=== PATIENT | male | born 1935 | race Caucasian/White ===

== ENCOUNTER 2017-10-31 16:59 | Inpatient (IN) | payer OTHER ==
[~2017-10-31] VITALS: Ht 188 cm; Wt 82.4 kg
[~2017-10-31 16:59] MED LIST: ALPRAZOLAM0.5 MG PO; ANTIVERT12.5 MG PO; CENTRUM SILVER1 EAC3 PO; CLARITIN10 M3 PO; DIGOXIN125 MCG PO; ELIQUIS2.5 MG PO; EXTRA STRENGTH500 M1 PO; FLAX OIL1000 MG PO; KENLAOG,ARISTOC60 ML TP; LEVAQUIN750 MG PO; LEVO-T100 MCG PO; LO-DOSE ASPIRIN81 M2 PO; LOPRESSOR50 MG PO; METOPROLOL SUCC25 MG PO; MIRALAX255 GM PO; OCUVITE SOFTGE1 EACH PO; POLYETHYLENE G255 GM PO; RANITIDINE HCL300 MG PO; SERTRALINE HCL25 MG PO; SIMVASTATIN20 MG PO; TRAZODONE HCL50 MG PO
[2017-10-31 18:30] LABS: HEMATOCRIT 41.4 % (38.0-50.0); MCH 29.5 PG (29.0-34.0); MCHC 33.1 G/DL (30.0-36.0); MCV 89.2 FL (86-99); PLATELET COUNT 521 K/uL (156-360); RBC DIS.WIDTH-CV 20.6 % (11.8-14.6); RED BLOOD COUNT 4.64 M/uL (4.00-5.50); WHITE BLOOD COUNT 14.4 K/uL (4.1-10.2)
[2017-10-31 18:34] LABS: BASOPHIL COUNT 0.4 K/uL (0-0.1); EOSINOPHIL (%) 8.9 % (0-5); EOSINOPHIL COUNT 1.3 K/uL (0-0.3); IMMATURE GRANULOCYTE (%) 0.9 % (0.0-0.7); IMMATURE GRANULOCYTE COUNT 0.1 K/uL; INSTRUMENT ABS NEUTROPHIL CT 7.6 K/uL; LYMPHOCYTE COUNT 1.8 K/uL (1.0-2.8); MONOCYTE (%) 22.3 % (3-12); MONOCYTE COUNT 3.2 K/uL (0-0.8); NEUTROPHIL (%) 53.1 % (45-76); NEUTROPHIL COUNT 7.6 K/uL (1.8-6.4)
[2017-10-31 18:36] LABS: INTER. NORMALIZED RATIO 1.5; PROTHROMBIN TIME 17.1 SEC (10.2-12.9)
[2017-10-31 18:38] LABS: PTT 39.8 SEC (25-37)
[2017-10-31 18:38] LABS: CHLORIDE 101 mEq/L (99-109); POTASSIUM 3.7 mEq/L (3.7-5.4); SODIUM 139 mEq/L (136-147)
[2017-10-31 18:40] LABS: GLUCOSE 119 mg/dL (70-99)
[2017-10-31 18:41] LABS: ANION GAP 13 MEQ/L (2-14)
[2017-10-31 18:42] LABS: TOTAL BILIRUBIN 1.8 mg/dL (0.0-1.0)
[2017-10-31 18:44] LABS: ALKALINE PHOSPHATASE 73 IU/L (3-129); GFR ESTIMATE (CALCULATED) > 59 mL/min/
[2017-10-31 18:45] LABS: UREA NITROGEN (BUN) 13 mg/dL (9-23)
[2017-10-31 18:52] LABS: DIGOXIN < 0.3 ng/mL (0.8-2.0)
[2017-10-31] MEDS ORDERED: ACETAMINOPHEN-1 EAC1 PO (22:31)
[2017-10-31] MEDS ORDERED: ELIQUIS5 MG PO (22:32)
[2017-10-31] MEDS ORDERED: CILOSTAZOL100 MG PO (22:33)
[2017-10-31] MEDS ORDERED: PANTOPRAZOLE SO40 MG PO (22:34)
[2017-10-31] MEDS ORDERED: SERTRALINE HCL50 MG PO (22:35)
[2017-10-31] MEDS ORDERED: SIMVASTATIN40 MG PO (22:36)
[2017-10-31] MEDS ORDERED: ASPIR-LOW81 MG PO (22:37)
[2017-10-31 22:40] VITALS: BP 141/82
[2017-10-31] MEDS ORDERED: DIGOXIN125 MCG PO (22:42)
[2017-10-31] MEDS ORDERED: METOPROLOL TART50 MG PO (22:45)
[2017-10-31] MEDS ORDERED: OCUVITE SOFTGE1 EACH PO (22:46)
[2017-10-31] MEDS ORDERED: CENTRUM SILVER1 EAC1 PO (22:48)
[2017-10-31] MEDS ORDERED: CLARITIN5 MG PO (22:49)
[2017-10-31] MEDS ORDERED: [UNRECOGNIZED DRUG - REMARK] (22:53)
[2017-11-01 04:10] VITALS: BP 129/64
[2017-11-01 05:55] LABS: HEMATOCRIT 34.2 % (38.0-50.0); MCH 29.2 PG (29.0-34.0); MCHC 32.7 G/DL (30.0-36.0); MCV 89.1 FL (86-99); PLATELET COUNT 403 K/uL (156-360); RBC DIS.WIDTH-CV 20.4 % (11.8-14.6); RBC DIS.WIDTH-SD 64.6 % (39-53); RED BLOOD COUNT 3.84 M/uL (4.00-5.50); WHITE BLOOD COUNT 10.4 K/uL (4.1-10.2)
[2017-11-01 06:05] LABS: ANION GAP 6 MEQ/L (2-14); CHLORIDE 111 MEQ/L (99-109); GFR ESTIMATE (CALCULATED) > 59 mL/min/; GLUCOSE 132 mg/dL (70-99); POTASSIUM 3.7 MEQ/L (3.7-5.4); SAMPLE HEMOLYSIS CHECK 0; SAMPLE ICTERIC CHECK 0; SAMPLE LIPEMIA CHECK 0; SODIUM 145 MEQ/L (136-147); UREA NITROGEN (BUN) 12 mg/dL (9-23)
[2017-11-01 08:15] VITALS: BP 126/72
[2017-11-01 10:34] LABS: METH RESISTANT S AUREUS PCR NEGATIVE (NEGATIVE)
[2017-11-01 10:52] LABS: PROBE CHECK PASS; SPECIMEN PROCESSING CONTROL PASS
[2017-11-01 12:40] VITALS: BP 128/75
[2017-11-01 16:45] VITALS: BP 128/75
[2017-11-01 17:36] LABS: ADD MIUA? YES; BILIRUBIN NEGATIVE; BLOOD SMALL; COLOR STRAW ((YELLOW)); GLUCOSE (STRIP) NEGATIVE; KETONES NEGATIVE; LEUKOCYTES NEGATIVE; NITRITE NEGATIVE; PROTEIN (STRIP) NEGATIVE; SPECIFIC GRAVITY 1.004 (1.000-1.030); UROBILINOGEN 0.2 MG/DL (0.2-1.0)
[2017-11-01 17:41] LABS: BACTERIA NONE SEEN /HPF; EPITHELIAL CELLS NONE SEEN /HPF; MUCUS TRACE /LPF; RED BLOOD CELLS 0-5 /HPF (0-5); WHITE BLOOD CELLS 0-5 /HPF (0-5)
[2017-11-01 19:11] LABS: TROP-I INTERPRETATION NEGATIVE; TROPONIN-I < 0.01 ng/mL (0.0-0.30)
[2017-11-01 19:20] VITALS: BP 119/66
[2017-11-01 23:38] VITALS: BP 108/66
[2017-11-02 01:06] LABS: TROP-I INTERPRETATION NEGATIVE; TROPONIN-I 0.01 ng/mL (0.0-0.30)
[2017-11-02 03:37] VITALS: BP 127/73
[2017-11-02 08:00] VITALS: BP 129/59
[2017-11-02 08:10] LABS: HEMATOCRIT 34.9 % (38.0-50.0); MCH 29.9 PG (29.0-34.0); MCHC 34.1 G/DL (30.0-36.0); MCV 87.7 FL (86-99); RBC DIS.WIDTH-CV 20.6 % (11.8-14.6); RBC DIS.WIDTH-SD 62.5 % (39-53); RED BLOOD COUNT 3.98 M/uL (4.00-5.50); WHITE BLOOD COUNT 10.8 K/uL (4.1-10.2)
[2017-11-02 08:31] LABS: TROP-I INTERPRETATION NEGATIVE; TROPONIN-I 0.02 ng/mL (0.0-0.30)
[2017-11-02 08:34] LABS: MEAN PLAT.VOLUME 12.2 uM^3 (9.0-12.4); PLAT.SUFFICIENCY INCREASED; PLATELET COUNT 393 K/uL (156-360)
[2017-11-02 08:44] LABS: ANION GAP 7 MEQ/L (2-14); CHLORIDE 103 MEQ/L (99-109); GFR ESTIMATE (CALCULATED) > 59 mL/min/; GLUCOSE 185 mg/dL (70-99); POTASSIUM 3.4 MEQ/L (3.7-5.4); SAMPLE HEMOLYSIS CHECK 0; SAMPLE ICTERIC CHECK 0; SAMPLE LIPEMIA CHECK 0; UREA NITROGEN (BUN) 12 mg/dL (9-23)
[2017-11-02 08:47] LABS: SODIUM 136 MEQ/L (136-147)
[2017-11-02 09:00] VITALS: BP 102/52
[2017-11-02 12:00] VITALS: BP 102/52
[2017-11-02 15:07] LABS: TROP-I INTERPRETATION NEGATIVE; TROPONIN-I 0.01 ng/mL (0.0-0.30)
[2017-11-02 17:05] VITALS: BP 103/55
[2017-11-02 19:25] VITALS: BP 131/65
[2017-11-02 20:22] LABS: TROP-I INTERPRETATION NEGATIVE; TROPONIN-I 0.01 ng/mL (0.0-0.30)
[2017-11-03] VITALS (10 sets, daily range): BP systolic 100–139; BP diastolic 53–67
[2017-11-03 02:51] LABS: TROP-I INTERPRETATION NEGATIVE; TROPONIN-I 0.01 ng/mL (0.0-0.30)
[2017-11-03 04:47] LABS: HEMATOCRIT 32.7 % (38.0-50.0); MCH 29.7 PG (29.0-34.0); MCHC 34.6 G/DL (30.0-36.0); MCV 86.1 FL (86-99); MEAN PLAT.VOLUME 12.5 uM^3 (9.0-12.4); PLATELET COUNT 377 K/uL (156-360); RBC DIS.WIDTH-CV 20.3 % (11.8-14.6); RBC DIS.WIDTH-SD 61.9 % (39-53); WHITE BLOOD COUNT 9.6 K/uL (4.1-10.2)
[2017-11-03 04:59] LABS: CHLORIDE 106 mEq/L (99-109); POTASSIUM 3.6 mEq/L (3.7-5.4); SODIUM 135 mEq/L (136-147)
[2017-11-03 05:01] LABS: GLUCOSE 141 mg/dL (70-99)
[2017-11-03 05:02] LABS: ANION GAP 7 MEQ/L (2-14)
[2017-11-03 05:05] LABS: GFR ESTIMATE (CALCULATED) > 59 mL/min/; UREA NITROGEN (BUN) 15 mg/dL (9-23)
[2017-11-03 07:43] LABS: MAGNESIUM 1.9 mg/dl (1.3-2.7)
[2017-11-04 05:16] VITALS: BP 112/61
[2017-11-04 05:35] LABS: HEMATOCRIT 33.3 % (38.0-50.0); MCH 28.9 PG (29.0-34.0); MCHC 33.3 G/DL (30.0-36.0); MCV 86.7 FL (86-99); MEAN PLAT.VOLUME 12.5 uM^3 (9.0-12.4); PLATELET COUNT 371 K/uL (156-360); RBC DIS.WIDTH-CV 19.9 % (11.8-14.6); RBC DIS.WIDTH-SD 61.5 % (39-53); RED BLOOD COUNT 3.84 M/uL (4.00-5.50); WHITE BLOOD COUNT 6.5 K/uL (4.1-10.2)
[2017-11-04 06:09] LABS: ANION GAP 11 MEQ/L (2-14); CHLORIDE 107 MEQ/L (99-109); GFR ESTIMATE (CALCULATED) > 59 mL/min/; GLUCOSE 119 mg/dL (70-99); POTASSIUM 4.3 MEQ/L (3.7-5.4); SAMPLE HEMOLYSIS CHECK 0; SAMPLE ICTERIC CHECK 0; SAMPLE LIPEMIA CHECK 0; SODIUM 140 MEQ/L (136-147); UREA NITROGEN (BUN) 14 mg/dL (9-23)
[2017-11-04 11:00] VITALS: BP 97/55
[2017-11-04 16:44] VITALS: BP 127/62
[2017-11-04 19:15] VITALS: BP 116/60
[2017-11-04 19:44] VITALS: BP 116/60
[2017-11-05] VITALS (7 sets, daily range): BP systolic 90–124; BP diastolic 51–66
[2017-11-05 05:28] LABS: HEMATOCRIT 31.9 % (38.0-50.0); MCH 28.4 PG (29.0-34.0); MCHC 33.2 G/DL (30.0-36.0); MCV 85.5 FL (86-99); MEAN PLAT.VOLUME 12.4 uM^3 (9.0-12.4); PLATELET COUNT 401 K/uL (156-360); RBC DIS.WIDTH-CV 20.2 % (11.8-14.6); RBC DIS.WIDTH-SD 61.2 % (39-53); RED BLOOD COUNT 3.73 M/uL (4.00-5.50); WHITE BLOOD COUNT 6.5 K/uL (4.1-10.2)
[2017-11-05 05:50] LABS: ALKALINE PHOSPHATASE 75 IU/L (3-129); ANION GAP 10 MEQ/L (2-14); CHLORIDE 109 MEQ/L (99-109); GFR ESTIMATE (CALCULATED) > 59 mL/min/; GLUCOSE 127 mg/dL (70-99); POTASSIUM 3.6 MEQ/L (3.7-5.4); SAMPLE HEMOLYSIS CHECK 0; SAMPLE ICTERIC CHECK 0; SAMPLE LIPEMIA CHECK 0; SODIUM 141 MEQ/L (136-147); TOTAL BILIRUBIN 1.1 MG/DL (0.0-1.0); UREA NITROGEN (BUN) 12 mg/dL (9-23)
[2017-11-05 06:13] LABS: BASOPHIL COUNT 0.3 K/uL (0-0.1); EOSINOPHIL (%) 26.8 % (0-5); EOSINOPHIL COUNT 1.7 K/uL (0-0.3); IMMATURE GRANULOCYTE (%) 0.8 % (0.0-0.7); IMMATURE GRANULOCYTE COUNT 0.1 K/uL; LYMPHOCYTE COUNT 0.9 K/uL (1.0-2.8); MONOCYTE (%) 8.5 % (3-12); MONOCYTE COUNT 0.6 K/uL (0-0.8); NEUTROPHIL (%) 46.4 % (45-76); PLATELET CLUMPS PRESENT - PLATELET COUNT APPEARS ADQ.
[2017-11-06 03:25] VITALS: BP 122/67
[2017-11-06 06:05] LABS: HEMATOCRIT 33.7 % (38.0-50.0); MCH 28.1 PG (29.0-34.0); MCHC 32.3 G/DL (30.0-36.0); MCV 86.9 FL (86-99); MEAN PLAT.VOLUME 12.5 uM^3 (9.0-12.4); PLATELET COUNT 418 K/uL (156-360); RBC DIS.WIDTH-CV 21.2 % (11.8-14.6); RBC DIS.WIDTH-SD 63.4 % (39-53); RED BLOOD COUNT 3.88 M/uL (4.00-5.50); WHITE BLOOD COUNT 6.9 K/uL (4.1-10.2)
[2017-11-06 06:36] LABS: ANION GAP 14 MEQ/L (2-14); CHLORIDE 112 MEQ/L (99-109); GFR ESTIMATE (CALCULATED) > 59 mL/min/; GLUCOSE 132 mg/dL (70-99); SAMPLE HEMOLYSIS CHECK 0; SAMPLE ICTERIC CHECK 0; SAMPLE LIPEMIA CHECK 0; SODIUM 145 MEQ/L (136-147); UREA NITROGEN (BUN) 12 mg/dL (9-23)
[2017-11-06 07:13] VITALS: BP 153/71
[2017-11-06 07:40] LABS: BASOPHIL COUNT 0.3 K/uL (0-0.1); EOSINOPHIL (%) 29.6 % (0-5); IMMATURE GRANULOCYTE (%) 0.9 % (0.0-0.7); IMMATURE GRANULOCYTE COUNT 0.1 K/uL; LYMPHOCYTE COUNT 1.1 K/uL (1.0-2.8); MONOCYTE (%) 5.5 % (3-12); MONOCYTE COUNT 0.4 K/uL (0-0.8); NEUTROPHIL (%) 43.5 % (45-76); PLATELET CLUMPS PRESENT - PLATELET COUNT APPEARS ADQ.
[2017-11-06 11:01] VITALS: BP 112/56
[2017-11-06] MEDS ORDERED: LINEZOLID600 MG PO (13:10)
[2017-11-06] MEDS ORDERED: CORDARONE200 MG PO (13:10)
[2017-11-06] MEDS ORDERED: LOPRESSOR100 M1 PO (13:11)
== END 2017-11-06 16:30 | disposition home health service (06) | DRG 872 ==
LOC: EME 16:59 → 4EAST 20:57 → ENRESERV 20:57 → EDOF 20:57 → ENRESERV 21:39 → 4EAST 22:19 → ENPENDDIS 11-06 → 4EAST 11-06 16:30
PROVIDERS: Hospitalist; Internal Medicine; Internal Medicine Cardiovascular Disease; Physician Assistant
DX: A41.9 Sepsis, unspecified organism (principal); L03.115 Cellulitis of right lower limb; I48.92 Unspecified atrial flutter; I75.023 Atheroembolism of bilateral lower extremities; C92.10 Chronic myeloid leukemia, BCR/ABL-positive, not having achieved remission; E11.52 Type 2 diabetes mellitus with diabetic peripheral angiopathy with gangrene; E87.2 Acidosis; R65.20 Severe sepsis without septic shock; I48.0 Paroxysmal atrial fibrillation; K21.9 Gastro-esophageal reflux disease without esophagitis; F39 Unspecified mood [affective] disorder; E11.42 Type 2 diabetes mellitus with diabetic polyneuropathy; I70.213 Atherosclerosis of native arteries of extremities with intermittent claudication, bilateral legs; D46.9 Myelodysplastic syndrome, unspecified; I70.223 Atherosclerosis of native arteries of extremities with rest pain, bilateral legs; G62.9 Polyneuropathy, unspecified; I10 Essential (primary) hypertension; I25.10 Atherosclerotic heart disease of native coronary artery without angina pectoris; I77.1 Stricture of artery; M19.90 Unspecified osteoarthritis, unspecified site; E89.0 Postprocedural hypothyroidism; E78.5 Hyperlipidemia, unspecified; Z88.2 Allergy status to sulfonamides; Z88.0 Allergy status to penicillin; Z90.79 Acquired absence of other genital organ(s); Z85.850 Personal history of malignant neoplasm of thyroid; Z79.02 Long term (current) use of antithrombotics/antiplatelets; Z79.82 Long term (current) use of aspirin; Z79.01 Long term (current) use of anticoagulants; Z85.46 Personal history of malignant neoplasm of prostate; Z80.8 Family history of malignant neoplasm of other organs or systems; Z80.3 Family history of malignant neoplasm of breast
CPT/HCPCS: 73630; 80048; 80053; 80162; 80202; 81003; 83605; 83735; 84100; 84484; 85025; 85027; 85610; 85730; 87040; 87070; 87075; 87086; 87106; 87205; 87641; 93005; 93926; 94799; 99281; 99285; J1160; J3370; J7030; J7040; J7050; J7120

== ENCOUNTER → 2017-11-19 | Outpatient (CLI) | payer OTHER ==
[~2017-11-19] MED LIST changes: +ACETAMINOPHEN-1 EAC1 PO; +ASPIR-LOW81 MG PO; +CENTRUM SILVER1 EAC1 PO; +CILOSTAZOL100 MG PO; +CLARITIN,ALAVAR10 MG PO; +CLARITIN5 MG PO; +CORDARONE200 MG PO; +ELIQUIS5 MG PO; +LINEZOLID600 MG PO; +LOPRESSOR100 M1 PO; +METOPROLOL TART50 MG PO; +OXAYDO5 MG PO; +PANTOPRAZOLE SO40 MG PO; +SERTRALINE HCL50 MG PO; +SIMVASTATIN40 MG PO; +[UNRECOGNIZED DRUG - REMARK]
== END | disposition home or self-care (01) ==
LOC: AMB 14:00
DX: I70.261 Atherosclerosis of native arteries of extremities with gangrene, right leg (principal); L03.115 Cellulitis of right lower limb; C91.10 Chronic lymphocytic leukemia of B-cell type not having achieved remission; Z88.0 Allergy status to penicillin; Z88.2 Allergy status to sulfonamides
CPT/HCPCS: 99212

== ENCOUNTER 2018-03-19 09:20 | Inpatient (IN) | payer OTHER ==
[~2018-03-19] VITALS: Ht 188 cm; Wt 80.6 kg
[~2018-03-19 09:20] MED LIST changes: +ATORVASTATIN CA20 MG PO; +CEPHALEXIN500 MG PO; -CLARITIN,ALAVAR10 MG PO; +HYDREA500 MG PO; +LOPRESSOR25 MG PO; +OXYCODONE HCL5 MG PO; +TYLENOL EXTRA500 MG PO
[2018-03-19 10:13] LABS: HEMATOCRIT 35.1 % (38.0-50.0); MCH 37.8 PG (29.0-34.0); PLATELET COUNT 95 K/uL (156-360); RBC DIS.WIDTH-CV 18.8 % (11.8-14.6); RBC DIS.WIDTH-SD 75.7 % (39-53); RED BLOOD COUNT 3.25 M/uL (4.00-5.50)
[2018-03-19 10:15] LABS: CHLORIDE 102 mEq/L (99-109); POTASSIUM 3.5 mEq/L (3.7-5.4); SODIUM 136 mEq/L (136-147)
[2018-03-19 10:20] LABS: CREATININE 1.8 mg/dL (0.6-1.3); GFR ESTIMATE (CALCULATED) 38 mL/min/ (58.99-99999); GLUCOSE 225 mg/dL (70-99)
[2018-03-19 10:22] LABS: HEMOGLOBIN 12.3 G/DL (12.5-16.6); WHITE BLOOD COUNT 121.5 K/uL (4.1-10.2)
[2018-03-19 10:25] LABS: TROP-I INTERPRETATION NEGATIVE; TROPONIN-I 0.02 ng/mL (0.0-0.30)
[2018-03-19 10:26] LABS: UREA NITROGEN (BUN) 15 mg/dL (9-23)
[2018-03-19] MEDS ORDERED: HYDREA500 MG PO (10:35)
[2018-03-19] MEDS ORDERED: DOXYCYCLINE MO100 MG PO (10:39)
[2018-03-19] MEDS ORDERED: TRAZODONE HCL50 MG PO (10:40)
[2018-03-19] MEDS ORDERED: STOOL SOFTENER100 MG PO (10:42)
[2018-03-19 13:12] LABS: APPEARANCE SL.HAZY ((CLEAR)); BILIRUBIN NEGATIVE; BLOOD SMALL; COLOR YELLOW ((YELLOW)); GLUCOSE (STRIP) NEGATIVE; KETONES NEGATIVE; LEUKOCYTES NEGATIVE; NITRITE NEGATIVE; PROTEIN (STRIP) 100; SPECIFIC GRAVITY 1.013 (1.000-1.030); UROBILINOGEN 0.2 MG/DL (0.2-1.0)
[2018-03-19 13:14] LABS: PLAT.SUFFICIENCY DECREASED
[2018-03-19 13:15] LABS: BACTERIA RARE /HPF; EPITHELIAL CELLS NONE SEEN /HPF; MUCUS TRACE /LPF; RED BLOOD CELLS 0-5 /HPF (0-5); UCUL ADDED? NO; WHITE BLOOD CELLS 0-5 /HPF (0-5)
[2018-03-19 16:50] VITALS: BP 138/68
[2018-03-19 17:00] VITALS: BP 138/68
[2018-03-19 17:21] LABS: ABS NEUTROPHIL COUNT 58.6; BAND NEUTROPHILS 8.6 % (0-8.0); EOSINOPHIL ABS CT 1.1; EOSINOPHILS 0.9 % (0-5.0); LYMPHOCYTES 2.6 % (15.0-45.0); SEG.NEUTROPHILS 39.6 % (46.0-76.0)
[2018-03-19 17:45] LABS: MONOCYTES 48.3 % (0-9.0)
[2018-03-19 18:31] LABS: TROP-I INTERPRETATION NEGATIVE; TROPONIN-I 0.01 ng/mL (0.0-0.30)
[2018-03-19 20:00] VITALS: BP 109/52
[2018-03-19 23:55] VITALS: BP 90/54
[2018-03-20 02:12] LABS: TROP-I INTERPRETATION NEGATIVE; TROPONIN-I 0.01 ng/mL (0.0-0.30)
[2018-03-20 04:00] VITALS: BP 109/60
[2018-03-20 05:57] LABS: PLATELET COUNT 92 K/uL (156-360)
[2018-03-20 06:10] LABS: HEMATOCRIT 34.7 % (38.0-50.0); HEMOGLOBIN 11.5 G/DL (12.5-16.6); MCH 36.2 PG (29.0-34.0); MCHC 33.1 G/DL (30.0-36.0); MCV 109.1 FL (86-99); RBC DIS.WIDTH-CV 18.7 % (11.8-14.6); RBC DIS.WIDTH-SD 76.4 % (39-53); RED BLOOD COUNT 3.18 M/uL (4.00-5.50)
[2018-03-20 06:17] LABS: WHITE BLOOD COUNT 83.2 K/uL (4.1-10.2)
[2018-03-20 06:26] LABS: ALBUMIN 3.4 G/DL (3.2-4.8); ALKALINE PHOSPHATASE 41 IU/L (3-129); ALT (GPT) 10 IU/L (3-49); AST (GOT) 10 IU/L (2-34); CHLORIDE 109 MEQ/L (99-109); CREATININE 1.8 MG/DL (0.6-1.3); GFR ESTIMATE (CALCULATED) 38 mL/min/ (58.99-99999); HDL CHOLESTEROL 15 MG/DL (Desirable>=40); LDL CHOLESTEROL 20 mg/dL (Desirable<100); NON-HDL CHOLESTEROL 45 mg/dL (Desirable<160); POTASSIUM 3.4 MEQ/L (3.7-5.4); SODIUM 142 MEQ/L (136-147); TOTAL CHOLESTEROL 60 mg/dL (Desirable<200); TRIGLYCERIDES 124 MG/DL (Normal: <150)
[2018-03-20 06:34] LABS: GLUCOSE 119 mg/dL (70-99); TOTAL BILIRUBIN 1.4 MG/DL (0.0-1.0); TOTAL PROTEIN 5.5 G/DL (6.4-8.3); UREA NITROGEN (BUN) 25 mg/dL (9-23)
[2018-03-20 12:26] VITALS: BP 109/59
[2018-03-20 16:00] VITALS: BP 106/54
[2018-03-20 20:00] VITALS: BP 99/51
[2018-03-20 23:55] VITALS: BP 96/55
[2018-03-21 04:00] VITALS: BP 103/58
[2018-03-21 07:30] VITALS: BP 103/57
[2018-03-21 08:34] LABS: POTASSIUM 3.8 mEq/L (3.7-5.4); SODIUM 144 mEq/L (136-147)
[2018-03-21 08:34] LABS: PLATELET COUNT 74 K/uL (156-360)
[2018-03-21 08:36] LABS: CHLORIDE 113 mEq/L (99-109); GLUCOSE 87 mg/dL (70-99)
[2018-03-21 08:39] LABS: HEMATOCRIT 34.8 % (38.0-50.0); HEMOGLOBIN 11.6 G/DL (12.5-16.6); MCH 36.9 PG (29.0-34.0); MCHC 33.3 G/DL (30.0-36.0); MCV 110.8 FL (86-99); RBC DIS.WIDTH-CV 18.6 % (11.8-14.6); RBC DIS.WIDTH-SD 78.1 % (39-53); RED BLOOD COUNT 3.14 M/uL (4.00-5.50)
[2018-03-21 08:40] LABS: WHITE BLOOD COUNT 68.2 K/uL (4.1-10.2)
[2018-03-21 08:40] LABS: CREATININE 1.5 mg/dL (0.6-1.3); GFR ESTIMATE (CALCULATED) 48 mL/min/ (58.99-99999)
[2018-03-21 08:41] LABS: UREA NITROGEN (BUN) 27 mg/dL (9-23)
[2018-03-21 11:29] VITALS: BP 118/60
[2018-03-21 14:42] VITALS: BP 112/56
[2018-03-21] MEDS ORDERED: ELIQUIS5 MG PO (16:23)
[2018-03-21] MEDS ORDERED: HYDREA500 MG PO ×2 (16:48→16:49)
== END 2018-03-21 18:37 | disposition home health service (06) | DRG 840 ==
LOC: EME 09:20 → 4EAST 14:47 → EDOF 14:47 → ENRESERV 14:49 → 4EAST 16:39
PROVIDERS: Emergency Medicine; Hospitalist; Internal Medicine; Student in an Organized Health Care Education/Training Program
DX: C93.10 Chronic myelomonocytic leukemia not having achieved remission (principal); N17.9 Acute kidney failure, unspecified; R65.11 Systemic inflammatory response syndrome (SIRS) of non-infectious origin with acute organ dysfunction; R07.89 Other chest pain; E86.1 Hypovolemia; I48.0 Paroxysmal atrial fibrillation; R79.1 Abnormal coagulation profile; T45.515A Adverse effect of anticoagulants, initial encounter; E87.6 Hypokalemia; I73.9 Peripheral vascular disease, unspecified; I10 Essential (primary) hypertension; E78.5 Hyperlipidemia, unspecified; E89.0 Postprocedural hypothyroidism; Z79.899 Other long term (current) drug therapy; Z86.718 Personal history of other venous thrombosis and embolism; Z85.46 Personal history of malignant neoplasm of prostate; Z85.850 Personal history of malignant neoplasm of thyroid; Z89.421 Acquired absence of other right toe(s); Z80.3 Family history of malignant neoplasm of breast; Z80.8 Family history of malignant neoplasm of other organs or systems
CPT/HCPCS: 36415; 71045; 80048; 80053; 80061; 81003; 84484; 85007; 85025; 85027; 93005; 94799; 99281; 99285; J7030; J7120

== ENCOUNTER 2018-07-02 10:24 | Observation (INO) | payer OTHER ==
[~2018-07-02] VITALS: Ht 177.8 cm; Wt 82.5 kg
[~2018-07-02 10:24] MED LIST changes: +CLARITIN,ALAVAR10 MG PO; +DOXYCYCLINE MO100 MG PO; +STOOL SOFTENER100 MG PO
[2018-07-02 11:10] LABS: HEMATOCRIT 37.2 % (38.0-50.0); HEMOGLOBIN 13.1 G/DL (12.5-16.6); MCH 36.6 PG (29.0-34.0); MCHC 35.2 G/DL (30.0-36.0); PLATELET COUNT 74 K/uL (156-360); RBC DIS.WIDTH-CV 14.6 % (11.8-14.6); RED BLOOD COUNT 3.58 M/uL (4.00-5.50)
[2018-07-02 11:11] LABS: MCV 103.9 FL (86-99); WHITE BLOOD COUNT 86.5 K/uL (4.1-10.2)
[2018-07-02 11:12] LABS: INTER. NORMALIZED RATIO 1.8
[2018-07-02 11:14] LABS: PTT 36.1 SEC (25-37)
[2018-07-02 11:22] LABS: CHLORIDE 101 mEq/L (99-109); POTASSIUM 3.8 mEq/L (3.7-5.4); SODIUM 135 mEq/L (136-147)
[2018-07-02 11:23] LABS: GLUCOSE 157 mg/dL (70-99)
[2018-07-02 11:27] LABS: CREATININE 1.8 mg/dL (0.6-1.3); GFR ESTIMATE (CALCULATED) 38 mL/min/ (58.99-99999)
[2018-07-02 11:28] LABS: UREA NITROGEN (BUN) 20 mg/dL (9-23)
[2018-07-02 11:33] LABS: TROP-I INTERPRETATION NEGATIVE; TROPONIN-I < 0.01 ng/mL (0.0-0.30)
[2018-07-02 11:56] LABS: ABS NEUTROPHIL COUNT 48.7; ANISOCYTOSIS 2+; BAND NEUTROPHILS 6.5 % (0-8.0); BASOPHILS 0.9 %; EOSINOPHILS 3.5 % (0-5.0); LYMPHOCYTES 5.6 % (15.0-45.0); MACROCYTES 1+; METAMYELOCYTES 0.4 %; MONOCYTES 29.4 % (0-9.0); MYELOCYTES 0.9 %; OVALOCYTES 1+; PLAT.SUFFICIENCY DECREASED; POLYCHROMASIA 1+; SEG.NEUTROPHILS 49.8 % (46.0-76.0); TEAR DROP CELLS 1+
[2018-07-02] MEDS ORDERED: KENALOG,ARISTOC80 GM TP (13:16)
[2018-07-02] MEDS ORDERED: ELIQUIS2.5 MG PO (13:18)
[2018-07-02] MEDS ORDERED: HYDREA500 MG PO (13:19)
[2018-07-02] MEDS ORDERED: MELATONIN10 M1 PO (13:19)
[2018-07-02 13:25] VITALS: BP 142/72
[2018-07-02 15:19] VITALS: BP 121/66
[2018-07-02 15:43] LABS: TROP-I INTERPRETATION NEGATIVE; TROPONIN-I 0.01 ng/mL (0.0-0.30)
[2018-07-02 19:20] VITALS: BP 94/50
[2018-07-02 21:01] VITALS: BP 133/61
[2018-07-02 23:50] LABS: TROP-I INTERPRETATION NEGATIVE; TROPONIN-I 0.02 ng/mL (0.0-0.30)
[2018-07-03] VITALS (10 sets, daily range): BP systolic 85–141; BP diastolic 53–64
[2018-07-03 05:52] LABS: HEMATOCRIT 35.9 % (38.0-50.0); HEMOGLOBIN 12.2 G/DL (12.5-16.6); MCH 35.9 PG (29.0-34.0); MCV 105.6 FL (86-99); PLATELET COUNT 68 K/uL (156-360); RBC DIS.WIDTH-CV 14.8 % (11.8-14.6); RBC DIS.WIDTH-SD 57.6 % (39-53)
[2018-07-03 05:54] LABS: CHLORIDE 105 MEQ/L (99-109); CREATININE 1.6 MG/DL (0.6-1.3); GFR ESTIMATE (CALCULATED) 44 mL/min/ (58.99-99999); GLUCOSE 123 mg/dL (70-99); POTASSIUM 3.6 MEQ/L (3.7-5.4); SODIUM 138 MEQ/L (136-147); UREA NITROGEN (BUN) 22 mg/dL (9-23)
[2018-07-03 06:12] LABS: WHITE BLOOD COUNT 62.3 K/uL (4.1-10.2)
[2018-07-03 10:17] LABS: APPEARANCE SL.HAZY ((CLEAR)); BILIRUBIN NEGATIVE; BLOOD MODERATE; COLOR YELLOW ((YELLOW)); GLUCOSE (STRIP) NEGATIVE; KETONES NEGATIVE; LEUKOCYTES NEGATIVE; NITRITE NEGATIVE; PROTEIN (STRIP) NEGATIVE; SPECIFIC GRAVITY 1.009 (1.000-1.030); UROBILINOGEN 0.2 MG/DL (0.2-1.0)
[2018-07-03 10:24] LABS: BACTERIA RARE /HPF; EPITHELIAL CELLS NONE SEEN /HPF; MUCUS TRACE /LPF; RED BLOOD CELLS 0-5 /HPF (0-5); UCUL ADDED? NO; URIC ACID CRYSTALS 1+ /HPF; WHITE BLOOD CELLS 0-5 /HPF (0-5)
[2018-07-04 03:30] VITALS: BP 112/57
[2018-07-04 07:14] VITALS: BP 120/65
[2018-07-04 09:39] VITALS: BP 141/70
== END 2018-07-04 10:23 | disposition home or self-care (01) ==
LOC: EME 10:24 → EDOF 12:43 → 4EAST 12:43 → EDOF 12:43 → 4EAST 12:43 → EDOF 13:02 → 4EAST 13:32
PROVIDERS: Emergency Medicine; Internal Medicine
DX: R94.31 Abnormal electrocardiogram [ECG] [EKG] (principal); R07.89 Other chest pain; I48.0 Paroxysmal atrial fibrillation; E03.9 Hypothyroidism, unspecified; Z85.6 Personal history of leukemia; I12.9 Hypertensive chronic kidney disease with stage 1 through stage 4 chronic kidney disease, or unspecified chronic kidney disease; N18.3 Chronic kidney disease, stage 3 (moderate); Z79.01 Long term (current) use of anticoagulants; E78.5 Hyperlipidemia, unspecified; D69.6 Thrombocytopenia, unspecified; Z89.429 Acquired absence of other toe(s), unspecified side; Z86.19 Personal history of other infectious and parasitic diseases; I73.9 Peripheral vascular disease, unspecified; Z85.850 Personal history of malignant neoplasm of thyroid; Z86.718 Personal history of other venous thrombosis and embolism; Z88.0 Allergy status to penicillin; Z88.2 Allergy status to sulfonamides; Z88.5 Allergy status to narcotic agent; Z88.8 Allergy status to other drugs, medicaments and biological substances; Z79.82 Long term (current) use of aspirin
CPT/HCPCS: 36415; 71045; 80048; 80053; 81003; 82948; 84484; 85025; 85027; 85610; 85730; 87040; 93005; 99281; 99285; G0378; J2543; J7030; J7040; J7050